=== PATIENT | male | born 1970 | race Caucasian/White ===

== ENCOUNTER 2017-02-22 06:25 | Emergency (ER) | payer MEDICAID ==
[2017-02-22] MEDS ORDERED: NS 500 ML IV ONE (06:34)
--- NOTE | 2017-02-22 06:41 | CPEKG ---
Heart Rate: 80 RR Interval: 750 P-R Interval: 160 QRSD Interval: 92 QT Interval: 396 QTC Interval: 457 P [place]: 83 QRS [place]: 72 T Wave [place]: 52 EKG Severity - NORMAL ECG - EKG Impression: SINUS RHYTHM Electronically Signed By: Sarita Godoy 22-Feb-2017 16:11:39
[2017-02-22 07:03] LABS: % IMMATURE GRANULYOCYTES 0.4 % (0.0-1.1); ABSOLUTE IMMATURE GRANULOCYTES 0.02 10^3/uL (0.00-0.10); ADD DIFF? NO; ADD MORPH? NO; ADD SCAN? NO; ATYPICAL LYMPHOCYTE FLAG 90 (0-99); FRAGMENT RBC FLAG 0 (0-99); HEMATOCRIT 41.6 % (40.0-51.0); HEMOGLOBIN 14.3 g/dL (13.7-17.5); LEFT SHIFT FLG 0 (0-99); LIPEMIA HEMOLYSIS FLAG 90 (0-99); MEAN CELL HEMOGLOBIN CONCENTR. 34.4 g/dL (32.4-36.7); MEAN CELL VOLUME 90.2 fL (81.5-99.8); MEAN PLATELET VOLUME 8.8 fL (8.7-11.7); PLATELET CLUMPS FLAG 0 (0-99); PLATELET COUNT 242 10^3/uL (150-400); RED BLOOD CELL COUNT 4.61 10^6/uL (4.40-6.38); RED CELL DISTRIBUTION WIDTH 13.3 % (11.5-15.2)
--- NOTE | 2017-02-22 07:03 | EDPHY ---
H & P Time Seen by Provider: 02/22/17 07:02 HPI/ROS: CHIEF COMPLAINT: Chest pain HISTORY OF PRESENT ILLNESS: This patient is a 46-year-old male with history of alcoholism and alcoholic withdrawal seizures who presents to the Emergency Department via EMS from the [facility] complaining of acute onset intermittent chest pains beginning yesterday evening. He was seen at [facility] yesterday with complaint of chest pain; he had a normal cardiac workup at that time and was sent to the [facility] upon discharge for alcohol withdrawal. At time of arrival, his pain has persisted but is less severe than previously. He describes the pain as sharp and localized to the center of his chest without radiation. No allev/aggrev factors. He also complains of bilateral arm tremors. He denies dyspnea, diaphoresis, vomiting, or additional complaints. No recent infections. His last reported alcoholic drink was two days ago. He smokes tobacco regularly. He reports a history of PA 10-15 years ago in [place], but this is not confirmed. REVIEW OF SYSTEMS: Constitutional: +diffuse tremors, no fever, no chills Eyes: No visual changes ENT: No sore throat Respiratory: No cough, no shortness of breath Cardiac: +chest pain Gastrointestinal: No nausea, no vomiting, no abdominal pain Genitourinary: No hematuria, no dysuria Musculoskeletal: No leg pain or swelling Skin: No rash Neurological: No headache, no numbness, no weakness Psychiatric: No depression Past Medical/Surgical History: Alcoholism with history of alcohol withdrawal seizures. Social History: Alcohol abuse. Smokes daily. Lives in [place]. Smoking Status: Current every day smoker Physical Exam: General Appearance: Alert, cooperative Eyes: Pupils equal and round, no conjunctival pallor or injection ENT, Mouth: Mucous membranes moist Neck: Normal inspection Respiratory: Lungs are clear to auscultation, no chest all tenderness Cardiovascular: Regular rate and rhythm Gastrointestinal: Abdomen is soft and non-tender Neurological: A&O, nonfocal, normal gait Skin: Warm and dry, no rash, multiple superficial abrasions to both upper extremities Extremities: Nontender, no pedal edema Psychiatric: Mood and affect normal Constitutional: Initial Vital Signs Temperature (C) 36.9 C 02/22/17 06:41 Heart Rate 86 02/22/17 06:41 Respiratory Rate 28 H 02/22/17 06:41 Blood Pressure 173/100 H 02/22/17 06:41 O2 Sat (%) 94 02/22/17 06:41 O2 Delivery Mode Room Air Allergies/Adverse Reactions: No Known Allergies Allergy (Unverified 02/22/17 06:40) Home Medications: Medication Instructions Recorded traMADol 02/22/17 Medical Decision Making - Diagnostics EKG Interpretation: EKG interpreted by me reveals normal sinus rhythm, rate 80; no ST/T changes. Imaging Results: CXR: NAD Imaging: I viewed and interpreted images myself ED Course/Re-evaluation: This patient is an alcoholic 46-year-old male referred to the ED from the [facility] for complaint of persistent chest pain beginning yesterday afternoon. [facility]; a review of available records reveals a normal workup at that time apart from indications of alcohol withdrawal for which he was sent to the [facility]. He returns today because his pain has persisted. He is hypertensive at 173/100 and tachypneic at 28 at time of arrival, consistent with alcohol withdrawal. His exam is otherwise normal. Will proceed with cardiac workup including EKG, labs, and chest x-ray. EKG reviewed (as above) and is non-ischemic. Chest x-ray reviewed and is normal. Labs obtained. EtOH elevated at 195. CBC is normal. Troponin is negative. Creatine kinase interpretation is negative. I discussed lab, EKG, and x-ray results with the patient. Given prolonged c/p and normal EKG/troponin, I can safely exclude ACS. No RF for PE, VS have normalized; based on this, I can safely exclude PE. Unclear etiology of cp, most likely musculoskeletal. I recommended to him that he return to the [facility] should he wish to continue with alcohol detoxification at this time. He is given [facility] for follow-up to obtain his prescription for Tramadol and for ongoing evaluation. He understands customary return precautions and will be discharged to the [facility] in good condition. Differential Diagnosis: The differential diagnosis for the patient's chest pain included but was not limited to myocardial ischemia, pulmonary embolus, chest wall pain, pleural inflammation, and pulmonary infectious causes. - Data Points Laboratory Results: Laboratory Results 02/22/17 06:52 02/22/17 06:52 Medications Given: Discontinued Medications Sodium Chloride (Ns) 500 mls @ 1,000 mls/hr IV ONCE ONE PRN Reason: Protocol Stop: 02/22/17 07:03 Last Admin: 02/22/17 06:50 Dose: 500 mls Ketorolac Tromethamine (Toradol) 15 mg IVP EDNOW ONE Stop: 02/22/17 07:24 Last Admin: 02/22/17 07:28 Dose: 15 mg Departure - Departure Disposition: Home, Routine, Self-Care Clinical Impression: Chest pain Qualifiers: Chest pain type: chest pain on breathing Qualified Code(s): R07.1 - Chest pain on breathing Alcohol dependence Qualifiers: Substance use status: uncomplicated Qualified Code(s): F10.20 - Alcohol dependence, uncomplicated Condition: Good Instructions: Chest Pain (ED), Alcohol Dependence (ED) Additional Instructions: 1. Return to the [facility] should you wish to detox from alcohol. 2. We have included follow-up information for [facility]. You can obtain your refill of Tramadol through the Clinic as we discussed. The [facility] has walk-in appointments at the following days/locations. No appointment is needed. Wednesday 8-10am @ [facility] 11AM-1PM @ [facility] Wednesday 8-10:30AM @ [facility] Wednesday 8-10 AM @ [facility] 2-4PM @ [facility] Wednesday 8-10AM @ [facility] 3. Return to the Emergency Department with difficulty breathing, worsening chest pain, excessive sweating, lightheadedness, seizure, or other serious concerns. Referrals: [facility],. [Clinic] - As per Instructions [facility] Detox 24 Hours [Outside] - As per Instructions Report Scribed for: Sarita Godoy Report Scribed by: Delmis Iraheta Date of Report: 02/22/17 Time of Report: 07:02 Physician Review and Approval Statement: 02/22/17 07:02 Portions of this note were transcribed by a lpn or medical assistant. I personally performed a history, physical exam, medical decision making, and confirmed accuracy of information the transcribed note.
[2017-02-22 07:14] LABS: ANION GAP 15 mEq/L (8-16); CARBON DIOXIDE 22 mEq/l (22-31); CHLORIDE 108 mEq/L (97-110); CREATININE 0.8 mg/dL (0.7-1.3); GLOMERULAR FILTRATION RATE > 60; GLUCOSE 76 mg/dL (70-100); POTASSIUM 3.6 mEq/L (3.5-5.2); SODIUM 145 mEq/L (134-144)
[2017-02-22] MEDS ORDERED: KETOROLAC 30 MG/1 ML SDV IVP ONE (07:23)
[2017-02-22 07:26] LABS: CK-MB INTERPRETATION NEGATIVE (NEGATIVE); TROPONIN I < 0.012 ng/mL (0-0.034)
[2017-02-22 07:31] LABS: CREATINE KINASE-MB FRACTION 5.69 ng/mL (0-3.19)
[2017-02-22 07:39] LABS: ETHANOL SERUM 195 mg/dL (0-10)
[2017-02-22 08:28] VITALS: BP 120/83; PULSE 87; RESP 16; TEMP 97.7; O2SAT 95
== END 2017-02-22 08:28 | disposition home or self-care (01) ==
DX: R07.1 Chest pain on breathing (principal); F10.20 Alcohol dependence, uncomplicated; F17.200 Nicotine dependence, unspecified, uncomplicated
CPT/HCPCS: 96374; G0480; J1885